=== PATIENT | female | born 1965 | race Caucasian/White ===

== ENCOUNTER 2017-09-26 16:30 | Emergency (ER) | payer BC ==
[2017-09-26] MEDS ORDERED: Sodium Chloride 0.9% 5 ML Syringe FLUSH PRN (16:40)
[2017-09-26] MEDS ORDERED: Ondansetron 4 MG/2 ML SDV IVPUSH ONE (16:40)
[2017-09-26] MEDS ORDERED: Ketorolac 30 MG/ML SDV IVPUSH ONE (16:40)
[2017-09-26] MEDS ORDERED: Sodium Chloride 0.9% 1,000 ML IV ONE ×2 (16:40→17:51)
[2017-09-26] MEDS ORDERED: Acetaminophen 325 MG Tab PO ONE (17:23)
[2017-09-26 17:36] LABS: CHLORIDE,CL 100 mmol/L (98-115); SODIUM,NA 136 mmol/L (136-145)
--- NOTE | 2017-09-26 17:57 | EDM.PDOC ---
ED HPI GENERAL MEDICAL PROBLEM - General Chief Complaint: Fever Stated Complaint: DEHYDRATION Time Seen by Provider: 09/26/17 16:38 Source of Information: Reports: Patient History Limitations: Reports: No Limitations - History of Present Illness INITIAL COMMENTS - FREE TEXT/NARRATIVE: Patient is a 52-year-old female who presents emergency department this afternoon with a complaint of fever, cough, upper respiratory symptoms. Patient states for a few days, and she hasn't felt like eating or drinking anything. Patient states she is currently on Cipro for urinary tract infection. Patient also underwent right shoulder arthroscopic surgery for rotator cuff repair 30 days ago. Patient denies chest pain, abdominal pain, bowel changes, or out of country travel. Onset: Gradual Duration: Day(s): Quality: Reports: Ache Severity: Mild Improves with: Reports: None Worsens with: Reports: None Associated Symptoms: Reports: Cough, cough w sputum, Fever/Chills, Nausea/ Vomiting - Related Data Allergies Allergy/AdvReac Type Severity Reaction Status Date / Time banana Allergy UNKNOWN Verified 09/26/17 17:41 latex Allergy Anaphylactic Verified 09/26/17 17:41 Shock metronidazole [From Flagyl] Allergy UNKNOWN Verified 09/26/17 17:41 milk Allergy UNKNOWN Verified 09/26/17 17:41 Penicillins Allergy UNKNOWN Verified 09/26/17 17:41 piperacillin [From Zosyn] Allergy Rash Verified 09/26/17 17:41 Sulfa (Sulfonamide Allergy UNKNOWN Verified 09/26/17 17:41 Antibiotics) tazobactam [From Zosyn] Allergy Rash Verified 09/26/17 17:41 Home Meds: Home Meds Ascorbic Acid [Vitamin C] 500 mg PO DAILY 07/14/15 [History] Aspirin [Halfprin] 81 mg PO BRK 07/14/15 [History] Calcium Carbonate/Vitamin D3 [Calcium 600-Vit D3 400 Tablet] 1 tab PO DAILY [History] Citalopram Hydrobromide [Celexa] 20 mg PO DAILY 07/14/15 [History] Cyclobenzaprine [Flexeril] 10 mg PO TID PRN 07/14/15 [History] Fish Oil/[place]-3 Fatty Acids [Fish Oil 1,000 MG] 1 cap PO DAILY 07/14/15 [ History] LORazepam [Ativan] 0.5 mg PO TID PRN 07/14/15 [History] Lutein 40 mg PO DAILY 07/14/15 [History] Melatonin 10 mg PO BEDTIME 07/14/15 [History] Multivitamin [Multivitamins] 1 each PO DAILY 07/14/15 [History] Ranitidine HCl [Zantac 75] 1 tab PO DAILY 07/14/15 [History] Zolpidem [Ambien] 5 mg PO BEDTIME PRN 07/14/15 [History] SUMAtriptan [Imitrex] 25 mg PO Q2H PRN 09/21/16 [History] Acetaminophen [Acetaminophen ER] 1,300 mg PO BID 09/25/16 [History] Ciprofloxacin HCl [Cipro] 500 mg PO BID 09/26/17 [History] Past Medical History HEENT History: Reports: Impaired Vision Other Cardiovascular History: cholesterol has been elevated in past Gastrointestinal History: Reports: Irritable Bowel Syndrome, Other (See Below) Other Gastrointestinal History: cholecystitis Other Genitourinary History: Only has 1 kidney [employer]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: Dysfunctional Uterine Bleeding, Musculoskeletal History: Reports: Back Pain, Chronic Other Musculoskeletal History: 2 prolapsed discs Neurological History: Reports: Migraines Psychiatric History: Reports: Anxiety, Depression - Infectious Disease History Infectious Disease History: Reports: Chicken Pox, Mumps - Past Surgical History Female Surgical History: Reports: Hysterectomy, Nephrectomy Other Female Surgeries/Procedures: bladder tuck Social & Family History - Tobacco Use Smoking Status *Q: Never Smoker Second Hand Smoke Exposure: No - Caffeine Use Caffeine Use: Reports: Coffee, Soda - Recreational Drug Use Recreational Drug Use: No ED ROS GENERAL - Review of Systems Review Of Systems: ROS reveals no pertinent complaints other than HPI. Constitutional: Reports: Fever, Chills, Fatigue, Decreased Appetite HEENT: Reports: No Symptoms Respiratory: Reports: Cough, Sputum. Denies: Hemoptysis Cardiovascular: Reports: No Symptoms. Denies: Chest Pain Endocrine: Reports: No Symptoms GI/Abdominal: Reports: No Symptoms : Reports: No Symptoms Musculoskeletal: Reports: No Symptoms Skin: Reports: No Symptoms Neurological: Reports: No Symptoms Psychiatric: Reports: No Symptoms Hematologic/Lymphatic: Reports: No Symptoms Immunologic: Reports: No Symptoms ED EXAM, GENERAL - Physical Exam Exam: See Below Exam Limited By: No Limitations General Appearance: Alert, WD/WN, No Apparent Distress Eye Exam: Bilateral Eye: Normal Inspection Nose: Normal Inspection, Normal Mucosa, No Blood Throat/Mouth: Normal Inspection, Normal Oropharynx, No Airway Compromise Head: Atraumatic, Normocephalic Neck: Normal Inspection, Supple Respiratory/Chest: No Respiratory Distress, Rhonchi (apical) Cardiovascular: Regular Rate, Rhythm, No Murmur GI/Abdominal: Normal Bowel Sounds, Soft, Non-Tender Back Exam: Normal Inspection. No: CVA Tenderness (L), CVA Tenderness (R) Extremities: Normal Inspection, No Pedal Edema Neurological: Alert, Oriented, Normal Cognition Psychiatric: Normal Affect, Normal Mood Skin Exam: Warm, Dry, Intact, Normal Color, No Rash Lymphatic: No Adenopathy Course - Orders/Labs/Meds Orders: Active Orders 24 hr Category Date Time Status Peripheral IV Care [RC] . DIRECTED Care 09/26/17 16:40 Ordered Chest 2V [CR] Stat Exams 09/26/17 16:40 Ordered CBC WITH AUTO DIFF [HEME] Stat Lab 09/26/17 16:40 Ordered COMPREHENSIVE METABOLIC PN,CMP [CHEM] Stat Lab 09/26/17 16:40 Ordered CULTURE URINE [RM] Stat Lab 09/26/17 16:40 Uncollected INFLUENZA A+B AG SCREEN [RM] Stat Lab 09/26/17 16:40 Uncollected UA W/MICROSCOPIC [URIN] Stat Lab 09/26/17 16:40 Uncollected Ketorolac [Toradol] Med 09/26/17 16:40 Once 30 mg IVPUSH ONETIME ONE Ondansetron [Zofran] Med 09/26/17 16:40 Once 4 mg IVPUSH ONETIME ONE Sodium Chloride 0.9% @ 999 MLS/HR (1000ml) Med 09/26/17 16:40 Ordered Sodium Chloride 0.9% [Normal Saline] 1,000 ml IV .BOLUS Sodium Chloride 0.9% [Syrex Flush] Med 09/26/17 16:40 Ordered 5 ml FLUSH Q8HR PRN Peripheral IV Insertion Adult [OM.PC] Routine Oth 09/26/17 16:40 Ordered - Radiology Interpretation Free Text/Narrative:: Chest x-ray negative for acute process - Re-Assessments/Exams Free Text/Narrative Re-Assessment/Exam: 09/26/17 18:02 Patient afebrile, nontoxic appearing, vital signs stable, at bedside. Influenza negative. Patient will follow-up with Dr. Miller in one to 2 days. 09/26/17 18:03 Departure - Departure Time of Disposition: 18:01 Disposition: Home, Self-Care 01 Condition: Fair Clinical Impression: Dehydration, moderate, Upper respiratory infection, acute Fever Qualifiers: Encounter type: initial encounter - Discharge Information Instructions: Fever, Adult, [id number], Dehydration, Adult, Upper Respiratory Infection, Adult, [id number] Referrals: Nancy Daniels MD [Primary Care Provider] - Forms: ED Department Discharge Additional Instructions: Follow-up with Dr. Miller in one to 2 days. Return to emergency department sooner if symptoms continue or worsen. - My Orders Last 24 Hours: My Active Orders 09/26/17 16:40 Peripheral IV Care [RC] . DIRECTED Chest 2V [CR] Stat CBC WITH AUTO DIFF [HEME] Stat COMPREHENSIVE METABOLIC PN,CMP [CHEM] Stat CULTURE URINE [RM] Stat INFLUENZA A+B AG SCREEN [RM] Stat UA W/MICROSCOPIC [URIN] Stat Ketorolac [Toradol] 30 mg IVPUSH ONETIME ONE Ondansetron [Zofran] 4 mg IVPUSH ONETIME ONE Sodium Chloride 0.9% @ 999 MLS/HR (1000ml) Sodium Chloride 0.9% [Normal Saline] 1,000 ml IV .BOLUS Sodium Chloride 0.9% [Syrex Flush] 5 ml FLUSH Q8HR PRN Peripheral IV Insertion Adult [OM.PC] Routine - Assessment/Plan Last 24 Hours: My Active Orders 09/26/17 16:40 Peripheral IV Care [RC] . DIRECTED Chest 2V [CR] Stat CBC WITH AUTO DIFF [HEME] Stat COMPREHENSIVE METABOLIC PN,CMP [CHEM] Stat CULTURE URINE [RM] Stat INFLUENZA A+B AG SCREEN [RM] Stat UA W/MICROSCOPIC [URIN] Stat Ketorolac [Toradol] 30 mg IVPUSH ONETIME ONE Ondansetron [Zofran] 4 mg IVPUSH ONETIME ONE Sodium Chloride 0.9% @ 999 MLS/HR (1000ml) Sodium Chloride 0.9% [Normal Saline] 1,000 ml IV .BOLUS Sodium Chloride 0.9% [Syrex Flush] 5 ml FLUSH Q8HR PRN Peripheral IV Insertion Adult [OM.PC] Routine Assessment:: Upper respiratory infection, dehydration Plan: Follow-up with PCP in one to 2 days.
[2017-09-26 18:56] VITALS: BP 155/82
== END 2017-09-26 18:55 | disposition home or self-care (01) ==
LOC: KA.ED 16:30
DX: J06.9 Acute upper respiratory infection, unspecified (principal); E86.0 Dehydration; F32.9 Major depressive disorder, single episode, unspecified; Z79.82 Long term (current) use of aspirin; Z79.899 Other long term (current) drug therapy; Z88.0 Allergy status to penicillin; Z88.1 Allergy status to other antibiotic agents; Z88.2 Allergy status to sulfonamides; Z88.8 Allergy status to other drugs, medicaments and biological substances; Z91.040 Latex allergy status; Z91.011 Allergy to milk products; Z91.018 Allergy to other foods
CPT/HCPCS: 36415; 71046; 80053; 81001; 85025; 87086; 87804; 96361; 96374; 96375; 99284; A9270; J1885; J2405; J7030

== ENCOUNTER 2018-01-23 12:10 | Emergency (ER) | payer BC ==
[2018-01-23] MEDS ORDERED: Metoclopramide 10 MG/2 ML SDV IVPUSH ONE (12:25)
[2018-01-23] MEDS ORDERED: Ketorolac 30 MG/ML SDV IVPUSH ONE (12:25)
[2018-01-23] MEDS ORDERED: diphenhydrAMINE 50 MG/ML SDV IVPUSH ONE (12:25)
--- NOTE | 2018-01-23 12:47 | EDM.PDOC ---
ED HPI GENERAL MEDICAL PROBLEM - General Chief Complaint: Headache Stated Complaint: Headache Time Seen by Provider: 01/23/18 12:36 Source of Information: Reports: Patient History Limitations: Reports: No Limitations - History of Present Illness INITIAL COMMENTS - FREE TEXT/NARRATIVE: 53 YO WF presents to ER complaining of headache x 1 day. Pt reports pain is occipital and radiates to the left side og her head and face. Pt denies any neurological deficits. Pt reports similar pain in the past which she's being treated for migraine headaches. Pt denies any nausea/vomiting, no fever/chills. Pt denies any recent illnesses. Onset: Today Location: Reports: Head Quality: Reports: Ache Severity: Moderate Improves with: Reports: None Worsens with: Reports: None Associated Symptoms: Reports: Headaches. Denies: Chest Pain, Fever/Chills, Nausea/Vomiting, Shortness of Breath - Related Data Allergies Allergy/AdvReac Type Severity Reaction Status Date / Time banana Allergy UNKNOWN Verified 09/26/17 17:41 latex Allergy Anaphylactic Verified 09/26/17 17:41 Shock metronidazole [From Flagyl] Allergy UNKNOWN Verified 09/26/17 17:41 milk Allergy UNKNOWN Verified 09/26/17 17:41 Penicillins Allergy UNKNOWN Verified 09/26/17 17:41 piperacillin [From Zosyn] Allergy Rash Verified 09/26/17 17:41 Sulfa (Sulfonamide Allergy UNKNOWN Verified 09/26/17 17:41 Antibiotics) tazobactam [From Zosyn] Allergy Rash Verified 09/26/17 17:41 Home Meds: Home Meds Ascorbic Acid [Vitamin C] 500 mg PO DAILY 07/14/15 [History] Aspirin [Halfprin] 81 mg PO BRK 07/14/15 [History] Calcium Carbonate/Vitamin D3 [Calcium 600-Vit D3 400 Tablet] 2 tab PO DAILY [History] Citalopram Hydrobromide [Celexa] 20 mg PO DAILY 07/14/15 [History] Cyclobenzaprine [Flexeril] 10 mg PO TID PRN 07/14/15 [History] Fish Oil/[place]-3 Fatty Acids [Fish Oil 1,000 MG] 1 cap PO DAILY 07/14/15 [ History] LORazepam [Ativan] 0.5 mg PO TID PRN 07/14/15 [History] Lutein 40 mg PO DAILY 07/14/15 [History] Melatonin 10 mg PO BEDTIME 07/14/15 [History] Multivitamin [Multivitamins] 1 each PO DAILY 07/14/15 [History] Ranitidine HCl [Zantac 75] 1 tab PO DAILY 07/14/15 [History] Zolpidem [Ambien] 5 mg PO BEDTIME PRN 07/14/15 [History] SUMAtriptan [Imitrex] 25 mg PO Q2H PRN 09/21/16 [History] Acetaminophen [Acetaminophen ER] 1,300 mg PO BID 09/25/16 [History] Ciprofloxacin HCl [Cipro] 500 mg PO BID 09/26/17 [History] Past Medical History HEENT History: Reports: Impaired Vision Other Cardiovascular History: cholesterol has been elevated in past Gastrointestinal History: Reports: Irritable Bowel Syndrome, Other (See Below) Other Gastrointestinal History: cholecystitis Other Genitourinary History: Only has 1 kidney [employer] History: Reports: Dysfunctional Uterine Bleeding, Musculoskeletal History: Reports: Back Pain, Chronic Other Musculoskeletal History: 2 prolapsed discs Neurological History: Reports: Migraines Psychiatric History: Reports: Anxiety, Depression - Infectious Disease History Infectious Disease History: Reports: Chicken Pox, Mumps - Past Surgical History Head Surgeries/Procedures: Reports: None Female Surgical History: Reports: Hysterectomy, Nephrectomy Other Female Surgeries/Procedures: bladder tuck Social & Family History - Tobacco Use Smoking Status *Q: Never Smoker Second Hand Smoke Exposure: No - Caffeine Use Caffeine Use: Reports: Coffee, Soda - Recreational Drug Use Recreational Drug Use: No ED ROS GENERAL - Review of Systems Review Of Systems: See Below Constitutional: Reports: No Symptoms HEENT: Reports: No Symptoms Respiratory: Reports: No Symptoms Cardiovascular: Reports: No Symptoms Endocrine: Reports: No Symptoms GI/Abdominal: Reports: No Symptoms : Reports: No Symptoms Musculoskeletal: Reports: No Symptoms Skin: Reports: No Symptoms Neurological: Reports: Headache Psychiatric: Reports: No Symptoms Hematologic/Lymphatic: Reports: No Symptoms Immunologic: Reports: No Symptoms - Physical Exam Exam: See Below Exam Limited By: No Limitations General Appearance: Alert, WD/WN, Mild Distress Eye Exam: Bilateral Eye: EOMI, PERRL Throat/Mouth: Normal Inspection, Normal Lips, Normal Teeth, Normal Gums, Normal Oropharynx, Normal Voice, No Airway Compromise Head Exam: Atraumatic, Normocephalic Neck: Normal Inspection, Supple, Non-Tender, Full Range of Motion Respiratory/Chest: No Respiratory Distress, Lungs Clear, Normal Breath Sounds, No Accessory Muscle Use, Chest Non-Tender Cardiovascular: Normal Peripheral Pulses, Regular Rate, Rhythm, No Edema, No Gallop, No JVD, No Murmur, No Rub GI/Abdominal: Normal Bowel Sounds, Soft, Non-Tender, No Organomegaly, No Distention, No Abnormal Bruit, No Mass Neuro Exam (Abbreviated): Alert, Oriented, CN II-XII Intact, Normal Cognition, Normal Gait, Normal Reflexes, No Motor/Sensory Deficits Back Exam: Normal Inspection, Full Range of Motion, NT Extremities: Normal Inspection, Normal Range of Motion, Non-Tender, No Pedal Edema, Normal Capillary Refill Psychiatric: Normal Affect, Normal Mood Skin Exam: Warm, Dry, Intact, Normal Color, No Rash Course - Orders/Labs/Meds Meds: Medications Discontinued Medications Generic Name Dose Route Start Last Admin Trade Name Freq PRN Reason Stop Dose Admin Diphenhydramine HCl 50 mg 01/23/18 12:25 Benadryl IVPUSH 01/23/18 12:26 ONETIME ONE Ketorolac Tromethamine 30 mg 01/23/18 12:25 Toradol IVPUSH 01/23/18 12:26 ONETIME ONE Metoclopramide HCl 10 mg 01/23/18 12:25 Reglan IVPUSH 01/23/18 12:26 ONETIME ONE - Re-Assessments/Exams Free Text/Narrative Re-Assessment/Exam: 01/23/18 13:00 Pt reports resolution of headache after administration of medication. Pt alert and oriented and wants to go home to rest Departure - Departure Time of Disposition: 13:05 Disposition: Home, Self-Care 01 Condition: Fair Clinical Impression: Headache, common migraine Qualifiers: Status migrainosus presence: without status migrainosus Intractability: not intractable Qualified Code(s): G43.009 - Migraine without aura, not intractable , without status migrainosus - Discharge Information Instructions: Migraine Headache, [id number] Referrals: Nancy Daniels MD [Primary Care Provider] - Forms: ED Department Discharge Additional Instructions: 1. discharge home 2. motrin 800mg PO Q8 PRN/benadryl 50mg PO Q6/Zofran 4mg ODT if pain returns 3. follow up with PC for further evaluation and treatment 4. return to ER for worsening symptoms - Assessment/Plan Assessment:: 1. Headache- migraine Plan: 1. discharge home 2. motrin 800mg PO Q8 PRN/benadryl 50mg PO Q6/Zofran 4mg ODT if pain returns 3. follow up with PC for further evaluation and treatment 4. return to ER for worsening symptoms
[2018-01-23 15:17] VITALS: BP 155/82
== END 2018-01-23 13:15 | disposition home or self-care (01) ==
LOC: KA.ED 12:10
DX: G43.009 Migraine without aura, not intractable, without status migrainosus (principal); F32.9 Major depressive disorder, single episode, unspecified; F41.9 Anxiety disorder, unspecified; Z88.8 Allergy status to other drugs, medicaments and biological substances; Z91.040 Latex allergy status; Z91.011 Allergy to milk products; Z88.0 Allergy status to penicillin; Z88.2 Allergy status to sulfonamides; Z79.82 Long term (current) use of aspirin; Z79.899 Other long term (current) drug therapy
CPT/HCPCS: 96374; 96375; 99283; J1200; J1885; J2765

== ENCOUNTER 2019-04-03 09:05 | Emergency (ER) | payer BC ==
[2019-04-03] MEDS ORDERED: Metoclopramide 10 MG/2 ML SDV IVPUSH ONE (09:21)
[2019-04-03] MEDS ORDERED: Sodium Chloride 0.9% 10 ML Syringe FLUSH PRN (09:21)
[2019-04-03] MEDS ORDERED: Ketorolac 30 MG/ML SDV IVPUSH ONE (09:21)
[2019-04-03] MEDS ORDERED: Sodium Chloride 0.9% 1,000 ML IV ONE (09:21)
[2019-04-03] MEDS ORDERED: diphenhydrAMINE 50 MG/ML SDV IVPUSH ONE (09:21)
[2019-04-03 09:23] VITALS: BP 124/65; PULSE 79
--- NOTE | 2019-04-03 09:35 | EDM.PDOC ---
ED HPI GENERAL MEDICAL PROBLEM - General Chief Complaint: Headache Stated Complaint: MIGRAINE Time Seen by Provider: 04/03/19 09:15 Source of Information: Reports: Patient History Limitations: Reports: No Limitations - History of Present Illness INITIAL COMMENTS - FREE TEXT/NARRATIVE: 54 YO WF presents to ER with complaints of headache. Pt reports headache began at approximately 4am. Pt states she took her tramadol and ativan but headache continued. Pt reports headache is posterior with radiation to frontal region and similar to her migraine headache that she has gotten in the past. Pt denies nausea/vomiting, no fever/chills, no neck pain or dizziness. Onset: Today Location: Reports: Head Quality: Reports: Ache Severity: Moderate Improves with: Reports: Rest Worsens with: Reports: Movement Associated Symptoms: Reports: Headaches. 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 Pain Score (Numeric/FACES): 8 - Related Data Allergies Allergy/AdvReac Type Severity Reaction Status Date / Time banana Allergy UNKNOWN Verified 04/03/19 09:23 latex Allergy Anaphylactic Verified 04/03/19 09:23 Shock metronidazole [From Flagyl] Allergy UNKNOWN Verified 04/03/19 09:23 milk Allergy UNKNOWN Verified 04/03/19 09:23 Penicillins Allergy UNKNOWN Verified 04/03/19 09:23 piperacillin [From Zosyn] Allergy Rash Verified 04/03/19 09:23 Sulfa (Sulfonamide Allergy UNKNOWN Verified 04/03/19 09:23 Antibiotics) tazobactam [From Zosyn] Allergy Rash Verified 04/03/19 09:23 Home Meds: Home Meds Ascorbic Acid [Vitamin C] 500 mg PO DAILY 07/14/15 [History] Aspirin [Halfprin] 81 mg PO BRK 07/14/15 [History] Calcium Carbonate/Vitamin D3 [Calcium 600-Vit D3 400 Tablet] 2 tab PO DAILY [History] Citalopram Hydrobromide [Celexa] 20 mg PO DAILY 07/14/15 [History] Cyclobenzaprine [Flexeril] 10 mg PO TID PRN 07/14/15 [History] Fish Oil/[place]-3 Fatty Acids [Fish Oil 1,000 MG] 1 cap PO DAILY 07/14/15 [ History] LORazepam [Ativan] 0.5 mg PO TID PRN 07/14/15 [History] Lutein 40 mg PO DAILY 07/14/15 [History] Melatonin 10 mg PO BEDTIME 07/14/15 [History] Multivitamin [Multivitamins] 1 each PO DAILY 07/14/15 [History] Ranitidine HCl [Zantac 75] 1 tab PO DAILY 07/14/15 [History] Zolpidem [Ambien] 5 mg PO BEDTIME PRN 07/14/15 [History] SUMAtriptan [Imitrex] 25 mg PO Q2H PRN 09/21/16 [History] Acetaminophen [Acetaminophen ER] 1,300 mg PO BID 09/25/16 [History] Past Medical History HEENT History: Reports: Impaired Vision Other Cardiovascular History: cholesterol has been elevated in past Gastrointestinal History: Reports: Irritable Bowel Syndrome, Other (See Below) Other Gastrointestinal History: cholecystitis Other Genitourinary History: Only has 1 kidney 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: Dysfunctional 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 Bleeding, Musculoskeletal History: Reports: Back Pain, Chronic Other Musculoskeletal History: 2 prolapsed discs Neurological History: Reports: Migraines Psychiatric History: Reports: Anxiety, Depression - Infectious Disease History Infectious Disease History: Reports: Chicken Pox, Mumps - Past Surgical History Head Surgeries/Procedures: Reports: None Female Surgical History: Reports: Hysterectomy, Nephrectomy Other Female Surgeries/Procedures: bladder tuck Social & Family History - Caffeine Use Caffeine Use: Reports: Coffee, Soda ED ROS GENERAL - Review of Systems Review Of Systems: See Below Constitutional: Reports: No Symptoms HEENT: Reports: No Symptoms. Denies: Sinus Problem, Vision Change Respiratory: Reports: No Symptoms Cardiovascular: Reports: No Symptoms Endocrine: Reports: No Symptoms GI/Abdominal: Reports: No Symptoms : Reports: No Symptoms Musculoskeletal: Reports: No Symptoms Skin: Reports: No Symptoms Neurological: Reports: Headache. Denies: Confusion, Dizziness, Syncope, Weakness Psychiatric: Reports: No Symptoms Hematologic/Lymphatic: Reports: No Symptoms Immunologic: Reports: No Symptoms - Physical Exam Exam: See Below Exam Limited By: No Limitations General Appearance: Alert, WD/WN, Mild Distress Eye Exam: Bilateral Eye: EOMI, PERRL Head Exam: Atraumatic, Normocephalic Neck: Normal Inspection, Supple, Non-Tender, Full Range of Motion Respiratory/Chest: No Respiratory Distress, Lungs Clear, Normal Breath Sounds, No Accessory Muscle Use, Chest Non-Tender Cardiovascular: Normal Peripheral Pulses, Regular Rate, Rhythm, No Edema, No Gallop, No JVD, No Murmur, No Rub GI/Abdominal: Normal Bowel Sounds, Soft, Non-Tender, No Organomegaly, No Distention, No Abnormal Bruit, No Mass Neuro Exam (Abbreviated): Alert, Oriented, CN II-XII Intact, Normal Cognition, Normal Gait, Normal Reflexes, No Motor/Sensory Deficits Back Exam: Normal Inspection, Full Range of Motion, NT Extremities: Normal Inspection, Normal Range of Motion, Non-Tender, No Pedal Edema, Normal Capillary Refill Psychiatric: Normal Affect, Normal Mood Skin Exam: Warm, Dry, Intact, Normal Color, No Rash Course - Vital Signs Last Recorded V/S: Last Vital Signs Temp 36.6 C 04/03/19 09:06 Pulse 79 04/03/19 09:06 Resp 14 04/03/19 09:06 BP 124/65 04/03/19 09:06 Pulse Ox 94 L 04/03/19 09:06 - Orders/Labs/Meds Orders: Active Orders 24 hr Category Date Time Status Peripheral IV Care [RC] . DIRECTED Care 04/03/19 09:21 Active Sodium Chloride 0.9% [Saline Flush] Med 04/03/19 09:21 Active 10 ml FLUSH Q8HR PRN Peripheral IV Insertion Adult [OM.PC] Routine Oth 04/03/19 09:21 Ordered Medication Orders Sodium Chloride (Saline Flush) 10 ml FLUSH Q8HR PRN PRN Reason: keep vein open Last Admin: 04/03/19 09:30 Dose: 10 ml Meds: Medications Generic Name Dose Route Start Last Admin Trade Name Freq PRN Reason Stop Dose Admin Sodium Chloride 10 ml 04/03/19 09:21 04/03/19 09:30 Saline Flush FLUSH 10 ml Q8HR PRN Administration keep vein open Discontinued Medications Generic Name Dose Route Start Last Admin Trade Name Freq PRN Reason Stop Dose Admin Diphenhydramine HCl 50 mg 04/03/19 09:21 04/03/19 09:42 Benadryl IVPUSH 04/03/19 09:22 50 mg ONETIME ONE Administration Sodium Chloride 1,000 mls @ 999 mls/hr 04/03/19 09:21 04/03/19 09:39 Normal Saline IV 04/03/19 10:21 999 mls/hr .BOLUS ONE Administration Ketorolac Tromethamine 30 mg 04/03/19 09:21 04/03/19 09:45 Toradol IVPUSH 04/03/19 09:22 30 mg ONETIME ONE Administration Metoclopramide HCl 10 mg 04/03/19 09:21 04/03/19 09:40 Reglan IVPUSH 04/03/19 09:22 10 mg ONETIME ONE Administration - Re-Assessments/Exams Free Text/Narrative Re-Assessment/Exam: 04/03/19 10:31 Pt improved after fluids and medication infusion. Pt requesting discharge. Pt vitals stable and in NAD Departure - Departure Time of Disposition: 10:35 Disposition: Home, Self-Care 01 Condition: Good Clinical Impression: Headache, common migraine Qualifiers: Status migrainosus presence: without status migrainosus Intractability: not intractable Qualified Code(s): G43.009 - Migraine without aura, not intractable , without status migrainosus - Discharge Information Instructions: Recurrent Migraine Headache Referrals: Nancy Daniels MD [Primary Care Provider] - Forms: ED Department Discharge Additional Instructions: 1. discharge home 2. rest/plenty of fluids 3. follow up with PCP for further management and treatment 4. return to ER for worsening symptoms - My Orders Last 24 Hours: My Active Orders 04/03/19 09:21 Peripheral IV Care [RC] . DIRECTED Sodium Chloride 0.9% [Saline Flush] 10 ml FLUSH Q8HR PRN Peripheral IV Insertion Adult [OM.PC] Routine - Assessment/Plan Last 24 Hours: My Active Orders 04/03/19 09:21 Peripheral IV Care [RC] . DIRECTED Sodium Chloride 0.9% [Saline Flush] 10 ml FLUSH Q8HR PRN Peripheral IV Insertion Adult [OM.PC] Routine Assessment:: 1. Migraine headache- resolved Plan: 1. discharge home 2. rest/plenty of fluids 3. follow up with PCP for further management and treatment 4. return to ER for worsening symptoms
== END 2019-04-03 10:58 | disposition home or self-care (01) ==
LOC: KA.ED 09:05
DX: G43.009 Migraine without aura, not intractable, without status migrainosus (principal); F41.9 Anxiety disorder, unspecified; F32.9 Major depressive disorder, single episode, unspecified; Z91.018 Allergy to other foods; Z91.040 Latex allergy status; Z88.8 Allergy status to other drugs, medicaments and biological substances; Z79.899 Other long term (current) drug therapy; Z79.82 Long term (current) use of aspirin
CPT/HCPCS: 96361; 96374; 96375; 99283; J1200; J1885; J2765; J7030

== ENCOUNTER 2021-08-01 16:44 | Emergency (ER) | payer BC ==
[2021-08-01 16:57] VITALS: BP 121/85; PULSE 96
--- NOTE | 2021-08-01 17:19 | CR ---
[id number] RAD/RAD Ankle Left 3V Min EXAM: 3 VIEWS LEFT ANKLE. INDICATION: FALL,INJURY. COMPARISON: July 07, 2016. DISCUSSION: No fracture, dislocation or other acute osseous abnormality. Small left ankle joint effusion. Ankle mortise is maintained. Soft tissue edema adjacent to the lateral malleolus. Enthesopathic change at the Achilles insertion. Moderate plantar calcaneal spur. IMPRESSION: 1. No definite acute osseous abnormalities. Small left ankle joint effusion. Soft tissue edema adjacent to the lateral malleolus. Rogelio Emery DO 08/01/21 [id number] Thank you for allowing us to participate in the care of your patient.
--- NOTE | 2021-08-01 17:42 | EDM.PDOC ---
ED HPI GENERAL MEDICAL PROBLEM - General Chief Complaint: Lower Extremity Injury/Pain Stated Complaint: LEFT ANKLE INJURY Time Seen by Provider: 08/01/21 17:00 Source of Information: Reports: Patient History Limitations: Reports: No Limitations - History of Present Illness INITIAL COMMENTS - FREE TEXT/NARRATIVE: Rosalie was enjoying the beautiful day outside walking her dog when he decided to take out her legs to play with another dog injuring her left ankle and right ribs when he knocked her to the ground. She denies any head trauma or loss of consciousness. She has pain across the lateral ankle. She has swelling at the ankle. She has pain with weightbearing. Denies any numbness or tingling in the lower extremity. No knee or hip trauma. Onset: Today Onset Date: 08/01/21 Onset Time: 15:00 Duration: Hour(s):, Constant Location: Reports: Lower Extremity, Left (Left ankle) Quality: Reports: Stabbing Severity: Moderate Improves with: Reports: Rest Worsens with: Reports: Movement (Weightbearing) Context: Reports: Trauma Associated Symptoms: Reports: No Other Symptoms Treatments RN CARDIAC: Reports: NSAIDS (Motrin 600 mg) - Related Data Allergies Allergy/AdvReac Type Severity Reaction Status Date / Time banana Allergy UNKNOWN Verified 08/01/21 16:53 latex Allergy Anaphylactic Verified 08/01/21 16:53 Shock metronidazole [From Flagyl] Allergy UNKNOWN Verified 08/01/21 16:53 milk Allergy UNKNOWN Verified 08/01/21 16:53 Penicillins Allergy UNKNOWN Verified 08/01/21 16:53 piperacillin [From Zosyn] Allergy Rash Verified 08/01/21 16:53 Sulfa (Sulfonamide Allergy UNKNOWN Verified 08/01/21 16:53 Antibiotics) tazobactam [From Zosyn] Allergy Rash Verified 08/01/21 16:53 Home Meds: Home Meds Ascorbic Acid [Vitamin C] 500 mg PO DAILY 07/14/15 [History] Aspirin [Halfprin] 81 mg PO BRK 07/14/15 [History] Calcium Carbonate/Vitamin D3 [Calcium 600-Vit D3 400 Tablet] 2 tab PO DAILY 07/14/15 [History] Citalopram Hydrobromide [Celexa] 20 mg PO DAILY 07/14/15 [History] Cyclobenzaprine [Flexeril] 10 mg PO TID PRN 07/14/15 [History] Fish Oil/Vanderbilt-3 Fatty Acids [Fish Oil 1,000 MG] 1 cap PO DAILY 07/14/15 [History] LORazepam [Ativan] 0.5 mg PO TID PRN 07/14/15 [History] Lutein 40 mg PO DAILY 07/14/15 [History] Melatonin 10 mg PO BEDTIME 07/14/15 [History] Multivitamin [Multivitamins] 1 each PO DAILY 07/14/15 [History] Zolpidem [Ambien] 5 mg PO BEDTIME PRN 07/14/15 [History] SUMAtriptan [Imitrex] 25 mg PO Q2H PRN 09/21/16 [History] Acetaminophen [Acetaminophen ER] 1,300 mg PO BID 09/25/16 [History] Past Medical History HEENT History: Reports: Impaired Vision Cardiovascular History: Reports: High Cholesterol Other Cardiovascular History: cholesterol has been elevated in past Gastrointestinal History: Reports: Irritable Bowel Syndrome, Other (See Below) Other Gastrointestinal History: cholecystitis Genitourinary History: Reports: Other (See Below) Other Genitourinary History: Only has 1 kidney [employer] History: Reports: Dysfunctional Uterine Bleeding, Musculoskeletal History: Reports: Back Pain, Chronic Other Musculoskeletal History: 2 prolapsed discs Neurological History: Reports: Migraines Psychiatric History: Reports: Anxiety, Depression Endocrine/Metabolic History: Reports: Obesity/BMI 30+ - Infectious Disease History Infectious Disease History: Reports: Chicken Pox, Mumps - Past Surgical History Head Surgeries/Procedures: Reports: None HEENT Surgical History: Reports: Tonsillectomy Cardiovascular Surgical History: Reports: None GI Surgical History: Reports: Colonoscopy Female Surgical History: Reports: Hysterectomy, Nephrectomy Other Female Surgeries/Procedures: bladder tuck Neurological Surgical History: Reports: None Musculoskeletal Surgical History: Reports: None Social & Family History - Family History Family Medical History: No Pertinent Family History - Tobacco Use Tobacco Use Status *Q: Never Tobacco User - Caffeine Use Caffeine Use: Reports: Coffee - Recreational Drug Use Recreational Drug Use: No Review of Systems - Review of Systems Review Of Systems: See Below Constitutional: Reports: No Symptoms Eyes: Reports: No Symptoms Ears: Reports: No Symptoms Nose: Reports: No Symptoms Mouth/Throat: Reports: No Symptoms Respiratory: Reports: No Symptoms Cardiovascular: Reports: No Symptoms GI/Abdominal: Reports: No Symptoms Genitourinary: Reports: No Symptoms Musculoskeletal: Reports: Back Pain, Joint Swelling (Left ankle) Skin: Reports: No Symptoms Neurological: Reports: No Symptoms Psychiatric: Reports: No Symptoms ED EXAM, GENERAL - Physical Exam Exam: See Below Exam Limited By: No Limitations General Appearance: Alert, WD/WN, No Apparent Distress Throat/Mouth: Normal Voice Head: Atraumatic Peripheral Pulses: 1+: Dorsalis Pedis (L), Dorsalis Pedis (R) Back Exam: Normal Inspection, Full Range of Motion, Paraspinal Tenderness. No: Vertebral Tenderness Extremities: Normal Capillary Refill, Joint Swelling (Ankle left), Other (Tenderness over the lateral ankle joint ATF CF ligament. Mild swelling over the lateral ankle gutter. No bony tenderness to palpation lateral malleolus or medial malleolus. No tenderness over syndesmosis. She has increased discomfort over the lateral ankle with pronation. She comes up to a nice) Neurological: Alert, Oriented, No Motor/Sensory Deficits Psychiatric: Normal Affect, Normal Mood Skin Exam: Warm, Dry, Intact Lymphatic: No Adenopathy Course - Vital Signs Last Recorded V/S: Last Vital Signs Temp 96.4 F L 08/01/21 17:08 Pulse 96 08/01/21 17:08 Resp 20 08/01/21 17:08 BP 121/85 08/01/21 17:08 Pulse Ox 96 08/01/21 17:08 - Orders/Labs/Meds Orders: Active Orders 24 hr Category Date Time Status DME for Discharge [COMM] Stat Oth 08/01/21 17:15 Ordered DME for Discharge [COMM] Stat Oth 08/01/21 17:23 Ordered - Radiology Interpretation Free Text/Narrative:: X-ray 3 views left ankle Indication: Fall, injury Comparison: July 07, 2016 Discussion: No fracture, dislocation or other acute osseous abnormality. Small left ankle joint effusion. Ankle mortise is maintained. Soft tissue edema adjacent to the lateral malleolus. Enthesopathic change at the Achilles insertion. Moderate plantar calcaneal spur. Impression: No definite acute osseous abnormalities. Small joint effusion left ankle. Soft tissue edema adjacent to the lateral malleolus. - Re-Assessments/Exams Free Text/Narrative Re-Assessment/Exam: 08/01/21 17:45 Patient tolerated placement of the lace up ankle brace. She was fitted with crutches. She was ambulating with crutches with minimal difficulty. Partial weightbearing on the left ankle. Departure - Departure Time of Disposition: 17:45 Disposition: Home, Self-Care 01 Condition: Good Clinical Impression: Left ankle sprain Qualifiers: Encounter type: initial encounter Involved ligament of ankle: anterior talofibular ligament Qualified Code(s): S93.492A - Sprain of other ligament of left ankle, initial encounter - Discharge Information Instructions: Ankle Sprain, Phase I Rehab-SportsMed, Ankle Sprain, [id number] Referrals: Nancy Daniels MD [Primary Care Provider] - Forms: ED Department Discharge Care Plan Goals: 1. R.I.C.E 2. Ibuprofen 800 mg 3 times daily with food. 3. Icing 20 minutes time 3-4 times a day 4. You may increase your weightbearing as tolerated with the use of crutches at this time.. 5. Recommend ankle range of motion exercises rehabilitative course after approximately 10 days. You may work on some active gentle range of motion exercises at this time. Sepsis Event Note (ED) - Evaluation Sepsis Screening Result: No Definite Risk - Focused Exam Vital Signs: Vital Signs Temp Pulse Resp BP Pulse Ox 08/01/21 17:08 96.4 F L 96 20 121/85 96 08/01/21 16:54 96.4 F L 96 20 121/85 96 - My Orders Last 24 Hours: My Active Orders 08/01/21 17:15 DME for Discharge [COMM] Stat 08/01/21 17:23 DME for Discharge [COMM] Stat - Assessment/Plan Last 24 Hours: My Active Orders 08/01/21 17:15 DME for Discharge [COMM] Stat 08/01/21 17:23 DME for Discharge [COMM] Stat Assessment:: Left ankle sprain Plan: 1. R.I.C.E 2. Ibuprofen 800 mg 3 times daily with food. 3. Icing 20 minutes time 3-4 times a day 4. You may increase your weightbearing as tolerated with the use of crutches at this time.. 5. Recommend ankle range of motion exercises rehabilitative course after approximately 10 days. You may work on some active gentle range of motion exercises at this time.
== END 2021-08-01 17:50 | disposition home or self-care (01) ==
LOC: KA.ED 16:44
DX: S93.492A Sprain of other ligament of left ankle, initial encounter (principal); E78.00 Pure hypercholesterolemia, unspecified; E66.9 Obesity, unspecified; Z68.41 Body mass index [BMI] 40.0-44.9, adult; Z79.82 Long term (current) use of aspirin; Z91.040 Latex allergy status; Z91.018 Allergy to other foods; Z91.011 Allergy to milk products; Z88.0 Allergy status to penicillin; Z88.2 Allergy status to sulfonamides; Z88.1 Allergy status to other antibiotic agents; X50.1XXA Overexertion from prolonged static or awkward postures, initial encounter
CPT/HCPCS: 73610-LT; 99283; 99283-25